=== PATIENT | female | born 1980 | race Hispanic/Latino ===

== ENCOUNTER 2017-01-25 09:55 | Inpatient (IN) | payer MEDICAID, SELFPAY ==
[2017-01-25] MEDS ORDERED: Labetalol HCl 100 MG/20 ML VIAL ONE (12:27)
[2017-01-25] MEDS ORDERED: FLU VACC QS2017-18 36 mo. & older 0.5 ML SYRINGE IM ONE (12:30)
[2017-01-25] MEDS ORDERED: Dextrose 50% Abboject 50 ML SYRINGE SLOW IVP PRN (12:31)
[2017-01-25] MEDS ORDERED: Docusate 100 MG CAP PO PRN (12:31)
[2017-01-25] MEDS ORDERED: Ondansetron HCl/PF 4 MG/2 ML Vial IVP PRN (12:31)
[2017-01-25] MEDS ORDERED: Promethazine HCl 25 MG/ML VIAL IM PRN (12:31)
[2017-01-25] MEDS ORDERED: Dextrose 5% in Water 1,000 ML IV PRN (12:31)
[2017-01-25] MEDS ORDERED: HumaLOG 300 UNITS/3 ML VIAL SC PRN (12:31)
[2017-01-25] MEDS: Labetalol HCl 100 MG/20 ML VIAL SLOW IVP PRN ×2 (12:35→14:11)
[2017-01-25 12:45] LABS: Hematocrit 35.7 % (36.0-47.0); Mean Platelet Volume 7.9 fL (7.4-10.4); Red Blood Cell (RBC) Count 4.14 mill/uL (4.20-5.40); White Blood Cell (WBC) Count 10.4 thou/uL (4.8-10.8)
[2017-01-25 13:18] LABS: ALT (SGPT) 25 U/L (8-55); AST (SGOT) 27 U/L (5-34); Alkaline Phosphatase 122 U/L (40-150); Anion Gap 15 mmol/L (10-20); BUN (Urea Nitrogen) 8 mg/dL (7.0-18.7); Bilirubin, Total 0.7 mg/dL (0.2-1.2); Calc. Creatinine Clearance 95 mL/min (70-130); Calcium 8.8 mg/dL (7.8-10.44); Carbon Dioxide 22 mmol/L (22-29); Chloride 110 mmol/L (98-107); Estimated GFR-MDRD 69; Globulin 3.4 g/dL (2.4-3.5); Protein, Total 6.5 g/dL (6.0-8.3)
[2017-01-25 13:38] VITALS: BMI 31.7
[2017-01-25] MEDS ORDERED: Labetalol HCl 100 MG TAB PO SCH ×3 (14:45→21:00)
[2017-01-25] MEDS: Betamet Acet/Betamet Na Ph 30 MG/5 ML VIAL IM SCH (15:00)
[2017-01-25] MEDS ORDERED: Lactated Ringer's 1,000 ML IV SCH (15:00)
--- NOTE | 2017-01-25 16:21 | ULT ---
EXAM: NONSTRESS BIOPHYSICAL PROFILE 01/25/17 HISTORY: Uncontrolled gestational diabetes. Severe hypertension. Possible pre-eclampsia. COMPARISON: None. TECHNIQUE: Nonstress biophysical profile is performed. FINDINGS: There is an anterior placenta. There is a single intrauterine gestation with presentation wyatt sverse maternal right. There are heart tones with a rate of 133 beats per minute. Amniotic fluid index is 10.4. Limited evaluation of the cervix. No lower uterine segment. There is a solid echotexture mass measur ing 13.3 x 11.6 x 16.3 cm. NONSTRESS BIOPHYSICAL PROFILE: bone - 2 breathing - 2 movement - 2 Amniotic fluid - 2 Total score 8 out of 8. IMPRESSION: 1. Nonstress biophysical profile score of 8 out of 8. 2. Single intrauterine gestation with heart tones. 3. Solid echotexture mass in the lower uterine segment, incompletely evaluated. POS: [facility]
[2017-01-25] MEDS ORDERED: Potassium Chloride 20 MEQ TAB PO SCH (17:30)
--- NOTE | 2017-01-25 18:01 | ULT ---
ULTRASOUND BILATERAL LOWER EXTREMITIES: Date: 01/25/17 HISTORY: Evaluate for thrombosis. Pain. Bilateral leg edema. COMPARISON: None. FINDINGS: The subcutaneous fat is abnormally increased in echotexture. There is mild lower extremity edema. Normal flow, augmentation, and compression in bilateral lower extremity venous system. The bilateral common femoral, femoral, proximal portion of greater saphenous, and deep femoral veins, as well as the popliteal and posterior tibial veins were interrogated. IMPRESSION: No deep venous thrombosis. POS: [facility]
--- NOTE | 2017-01-25 19:16 | HP ---
DATE OF ADMISSION: 01/25/2017 ATTENDING DOCTOR: Crystal Hassan D.O. RESIDENT DOCTOR: Dr. Garcia. HISTORY OF PRESENT ILLNESS: Dr. Garcia's H\T\P reviewed and the case discussed. Pertinent p ortions of the history and physical were repeated by myself. I agree with the assessment and plan w ith the following addendum. Ms. Dillard is a 36-year-old female G1, P0 with a past medical history of chronic hypertensi on. In this , she has also been noted to have uncontrolled gestational diabetes as well as enlarged cervical fibroid. 1. Chronic hypertension. Her blood pressures at the clinic today were 180s. Patient is supposed t o be taking 200 mg of labetalol b.i.d. Per her report, she is only taking 100 mg daily. She was se nt from the clinic to the hospital for further management as well as preeclampsia evaluation. Her b lood pressures here are improved on labetalol to a most recent systolic in the 170s. We will go ahe ad and give her p.o. dose of labetalol as well. We will also do a preclampsia workup with CBC, CMP and 24-hour urine. Her lab work appears to be normal other than a mild anemia with hemoglobin of 11 .6 and potassium 3.1. LFTs are normal. Creatinine is 0.92. We do not have another baseline for he r. Hemoglobin A1c 5.0 and a 24-hour urine is pending. BPP NST is 01/25. 2. Gestational diabetes: Her home blood pressure log notes blood sugars in the 190s. Her blood chaudhary gars here is 73 prior to lunch. We will continue to monitor fasting and 2-hour postprandial blood s ugars to determine if the patient requires insulin versus oral medications. The patient may require insulin treatment, but we will continue to monitor blood sugars for now. 3. Cervical fibroid. Patient will require primary as the large fibroid is blocking the p elvic output. We will schedule for 37 to 38 weeks per OB recommendations. Given her high risk for delivery before 37 weeks due to multiple high risk comorbidities as well as some issues with complia nce, we will go ahead and give her 2 doses of steroids. We will also check a GBS swab today.
[2017-01-25] MEDS ORDERED: Insulin Detemir 100 UNITS/ML 5 UNITS in Pre-Filled Syringe SC SCH (21:00)
[2017-01-26] MEDS: Acetaminophen 325 MG TAB PO PRN ×2 (00:07→13:07)
--- NOTE | 2017-01-26 07:41 | PDOC.FM ---
- Subjective Subjective: 36 yo F with uncrontrolled chronic hypertension hospital day 2. No acute events overnight. BP has trended down on average but pressure remains high. She denies NVDC, CP, SOB, changes of vision, weakness, dizziness, scotoma, abdominal pain. She reports one headache that subsequently resolved. She states she has been taking her medication as prescribed at home. - Objective Vital Signs & Weight: Vital Signs (12 hours) Temp Pulse Resp BP Pulse Ox 01/25/17 20:52 88 132/78 01/25/17 20:00 98.0 F 88 18 99 Weight Weight 71.214 kg Result Diagrams: 01/25/17 12:05 01/25/17 12:05 <Woody Vazquez - Last Filed: 01/26/17 07:38> - Objective Vital Signs & Weight: Vital Signs (12 hours) Temp Pulse Resp BP 01/26/17 09:11 69 159/83 H 01/26/17 08:00 98.4 F 73 18 Weight Weight 71.214 kg Result Diagrams: 01/25/17 12:05 01/25/17 12:05 <Crystal Hassan - Last Filed: 01/26/17 14:20> Phys Exam - Physical Examination Constitutional: NAD HEENT: sclera anicteric Respiratory: no wheezing, no rales, no rhonchi, clear to auscultation bilateral Cardiovascular: RRR, no significant murmur, no rub Gastrointestinal: soft, non-tender Gravid Musculoskeletal: pulses present no-pitting edema b/l LE, improved from yesterday Neurological: non-focal, moves all 4 limbs Psychiatric: normal affect <Woody Vazquez - Last Filed: 01/26/17 07:38> Dx/Plan (1) Chronic hypertension affecting Code(s): O10.919 - UNSP PRE-EXISTING HTN COMP , UNSP TRIMESTER Status : Acute Plan: -continue labetalol 200BID, consider increase to 300 BID if morning pressures increase -maintain pressures <160 systolic -hydralizine PRN for sys >180 -r/o pre-e spot urine protein/creatinine, 24 hr urine protein pending -AST, ALT, Platelets WNL BPP 11/23 (2) Gestational diabetes Code(s): O24.419 - GESTATIONAL DIABETES MELLITUS IN , UNSP CONTROL Status: Acute Plan: -HgbA1c is 5. -currently sugars in normal range -hold GDM meds for now -recommend close op f/u given h/o elevated 1hr GTT results -dietary consult pending for pt education BPP 11/23 (3) Pre-eclampsia added to pre-existing hypertension Code(s): O11.9 - PRE-EXISTING HYPERTENSION WITH PRE-ECLAMPSIA, UNSP TRIMESTER Status: Acute Plan: concern for 24 hr urine protein pending Urine protein <10 and urine creatinine <20 BPP 11/23 (4) Edema Code(s): R60.9 - EDEMA, UNSPECIFIED Status: Acute Plan: venogram negative for DVT bl <Woody Vazquez - Last Filed: 01/26/17 07:38> Attending Addendum - Attending Addendum I personally evaluated the patient and discussed the management with Dr. Vazquez on 01/26/17. I agree with the History, Examination, Assessment and Plan documented above with any addition or exceptions noted below. BPs improved today on higher dose of labetalol. Continue labetalol 300 mg BID for now. Blood sugars normal, but not checked 2h post prandial, will change today and monitor. Will likely be able to control on PO meds and diet based on today's numbers. Continue to monitor overnight. Will get second dose of steroids tonight and likely discharge tomorrow if BP and glucose remain controlled. C/S scheduled for 37-38 weeks per OB recommendation. <Crystal Hassan - Last Filed: 01/26/17 14:20>
[2017-01-26] MEDS: Labetalol HCl 100 MG TAB PO SCH ×2 (09:11→21:18)
[2017-01-26] MEDS: Enoxaparin Sodium 40 MG/0.4 ML SYRINGE SC SCH (09:11)
[2017-01-26 12:17] LABS: Collection Duration 24 hrs
[2017-01-26 13:02] LABS: Protein, Urine Less than 10 mg/dL (1-14)
[2017-01-26] MEDS: Betamet Acet/Betamet Na Ph 30 MG/5 ML VIAL IM SCH (15:15)
[2017-01-27] MEDS: Acetaminophen 325 MG TAB PO PRN ×2 (04:57→13:16)
--- NOTE | 2017-01-27 08:08 | PDOC.FM ---
- Subjective Subjective: 36 yo F with @ 31.4 weeks with chronic htn and GDM, currently hospital day 3. No acute events overnight. She reports 2 headaches since yesterday which have responded to tylenol. Denies changes of vision, lightheadedness, dizziness, CP, SOB. Denies change in swelling from her baseline. Mom reports good movement. - Objective Vital Signs & Weight: Vital Signs (12 hours) Temp Pulse Resp BP BP Pulse Ox 01/27/17 04:30 98.1 F 69 20 157/76 H 01/26/17 23:00 97.9 F 75 18 139/78 97 01/26/17 21:18 78 144/76 H Weight Weight 71.214 kg I&O: 01/26/17 01/27/17 01/28/17 06:59 06:59 06:59 Intake Total 800 Balance 800 Result Diagrams: 01/25/17 12:05 01/25/17 12:05 <Woody Vazquez - Last Filed: 01/27/17 08:04> - Objective Vital Signs & Weight: Vital Signs (12 hours) Temp Pulse Resp BP BP 01/27/17 12:55 97.5 F L 64 18 129/69 01/27/17 09:30 60 155/76 H 01/27/17 08:40 98.0 F 60 18 01/27/17 08:39 98.0 F 60 18 155/76 H Weight Weight 71.214 kg I&O: 01/26/17 01/27/17 01/28/17 06:59 06:59 06:59 Intake Total 800 Balance 800 Result Diagrams: 01/25/17 12:05 01/25/17 12:05 <Crystal Hassan - Last Filed: 01/27/17 17:10> Phys Exam - Physical Examination Constitutional: NAD HEENT: sclera anicteric Respiratory: no wheezing, no rales, no rhonchi, clear to auscultation bilateral Cardiovascular: RRR, no significant murmur, no rub Gastrointestinal: non-tender Gravid Musculoskeletal: pulses present non-pitting edema bl LE Neurological: non-focal, moves all 4 limbs <Woody Vazquez - Last Filed: 01/27/17 08:04> Dx/Plan (1) Chronic hypertension affecting Code(s): O10.919 - UNSP PRE-EXISTING HTN COMP , UNSP TRIMESTER Status : Acute Plan: -continue labetalol 300 BID -maintain pressures <160 systolic -hydralizine PRN for sys >180, given once yesterday for sys of >180 -24 hr urine protein negative for evidence of pre-e -AST, ALT, Platelets WNL -BPP 8/8 -repeat NST today, if reassuring DC home with close OP f/u -GBS pending (2) Gestational diabetes Code(s): O24.419 - GESTATIONAL DIABETES MELLITUS IN , UNSP CONTROL Status: Acute Plan: -HgbA1c is 5. -BS elevated to 184 yesterday and pt given 2 units SSI. This is likely 2/2 celestone administration, but recommend close op f/u and home monitoring of BS. -attempt diet control for GDM on d/c. close OP f/u for blood sugar. -dietary consult pending for pt education -BPP 8 -NST today, dc home if reassuring (3) Pre-eclampsia added to pre-existing hypertension Code(s): O11.9 - PRE-EXISTING HYPERTENSION WITH PRE-ECLAMPSIA, UNSP TRIMESTER Status: Ruled-out Plan: 24 hour urine protein negative for pre-eclampsia BPP 8 (4) Edema Code(s): R60.9 - EDEMA, UNSPECIFIED Status: Acute Plan: venogram negative for DVT bl continue lovenox and scds for DVT prophylaxis pedal edema remains,unchanged from yesterday <Woody Vazquez - Last Filed: 01/27/17 08:04> Attending Addendum - Attending Addendum I personally evaluated the patient and discussed the management with Dr. Vazquez on 01/27/17. I agree with the History, Examination, Assessment and Plan documented above with any addition or exceptions noted below. BP improved on labetalol 300 mg. Monitor through this morning. Single elevated glucose, will start Metformin with concerns uncontrolled GDM. Follow up in clinic on Tuesday with blood sugar logs to continue to titrate meds. <Crystal Hassan - Last Filed: 01/27/17 17:10>
[2017-01-27] MEDS ORDERED: Prenatal Vitamin 1 TAB PO SCH (09:00)
[2017-01-27] MEDS: Labetalol HCl 100 MG TAB PO SCH (09:30)
[2017-01-27] MEDS: Enoxaparin Sodium 40 MG/0.4 ML SYRINGE SC SCH (09:31)
[2017-01-27 12:56] VITALS: BP 129/69; TEMP 97.5
--- NOTE | 2017-01-28 13:40 | DIS-2 ---
DATE OF SERVICE: 01/29/2017 LOCATION: [facility] in [place], [place]. COSIGNER: Crystal Hassan D.O. DATE OF ADMISSION: 01/25/2017 DATE OF DISCHARGE: 01/27/2017 RESIDENT PHYSICIAN: Woody Vazquez DO ADMITTING ATTENDING: Crystal Hassan D.O. DISCHARGE ATTENDING: Crystal Hassan D.O. CONSULTS: None. PROCEDURES: 1. Biophysical profile ultrasound showed nonstress biophysical profile score 8/8. 2. Also showed a single intrauterine gestation with heart tones. 3. Showed echotexture mass in the lower uterine segment, incompletely evaluated. 4. Venogram done on 01/25/2017, showed no deep vein thrombosis. PRIMARY DIAGNOSES: 1. Chronic hypertension, complicated by . 2. Gestational diabetes. DISCHARGE MEDICATIONS: 1. Labetalol 300 mg p.o. b.i.d. 2. vitamin 1 tab daily. DISCONTINUED MEDICATIONS: Labetalol 100 mg daily. HISTORY OF PRESENT ILLNESS AND HOSPITAL COURSE: The patient is a 36-year-old G1 , P0 at 31 weeks and 2 days by last menstrual period, sent from the Clinic for uncontrolled hypertension and gestational diabetes, and her systolic blood pressure within 100-180s prior to admission and a 1-hour glucose tolerance test showed a glucose of over 200. On admission, the patient was switched to a diabetic cardiac diet and her pressures were monitored. DBP and SBP were performed, both of which were normal and the patient's labetalol was increased from 100 b.i.d. to 300 b.i.d. upon discharge. Her blood pressure on admission was 191/106, which subsequently trended down with the increase in labetalol dose to 129/69 upon discharge. All other vitals were within normal limits. CBC done showed a white blood cell count 10.4, hemoglobin 11.6, hematocrit 35.7, platelets of 240. Her glucose on admission was 73 and remained fairly well controlled throughout her stay without the use of medications. Her 2-hour postprandial glucose measurements were 113, 184, and 122 respectively. After the 184 glucose readings, patient was given 2 units of mild sliding scale insulin, which subsequently dropped her blood glucose to 110 ; however, it should be noted that the patient was also given Celestone x2 doses prior to the elevated blood sugars. LFT's w/in normal limits. Normal Platelets. DISPOSITION: The patient left the hospital in stable condition. DISCHARGE INSTRUCTIONS: 1. Location: Discharge home. 2. Discharge diet: Diabetic diet and heart healthy. 3. Activity: As tolerated. 4. Followup: Follow up clinic or primary obstetrics provider within 1 week following discharge. ANGÉLICA
== END 2017-01-27 15:15 | disposition home or self-care (01) | DRG 781 ==
LOC: L&D/OP 09:55 → L&D 11:09 → 3SW 01-26 23:29
PROVIDERS: ADMIT Family Medicine; ATTEND Family Medicine
DX: O10.013 Pre-existing essential hypertension complicating pregnancy, third trimester (principal); O99.89 Other specified diseases and conditions complicating pregnancy, childbirth and the puerperium; D26.0 Other benign neoplasm of cervix uteri; O24.410 Gestational diabetes mellitus in pregnancy, diet controlled; Z3A.31 31 weeks gestation of pregnancy; O09.513 Supervision of elderly primigravida, third trimester; O99.013 Anemia complicating pregnancy, third trimester; D64.9 Anemia, unspecified
CPT/HCPCS: 36416; 59025; 76819; 80053; 82570; 83036; 84156; 85027; 87081; 93970; J0360; J0702; J1650; J1815; J2405

== ENCOUNTER 2017-01-31 10:42 | Inpatient (IN) | payer MEDICAID, SELFPAY ==
[2017-01-31] MEDS ORDERED: Promethazine HCl 25 MG/ML VIAL IM PRN ×2 (11:05→18:07)
[2017-01-31] MEDS ORDERED: Calcium Gluc 4.6 MEQ/10 ML (100 MG/ML) SLOW IVP PRN ×2 (11:05→13:28)
[2017-01-31] MEDS ORDERED: Ondansetron HCl/PF 4 MG/2 ML Vial IVP PRN ×3 (11:05→18:07)
[2017-01-31] MEDS ORDERED: Labetalol HCl 100 MG TAB PO SCH ×2 (11:30→21:00)
[2017-01-31 12:32] LABS: Mean Platelet Volume 8.4 fL (7.4-10.4); Red Blood Cell (RBC) Count 4.26 mill/uL (4.20-5.40); White Blood Cell (WBC) Count 12.8 thou/uL (4.8-10.8)
[2017-01-31 12:52] LABS: ALT (SGPT) 197 U/L (8-55); AST (SGOT) 97 U/L (5-34); Alkaline Phosphatase 150 U/L (40-150); Anion Gap 14 mmol/L (10-20); BUN (Urea Nitrogen) 10 mg/dL (7.0-18.7); Bilirubin, Total 0.9 mg/dL (0.2-1.2); Calc. Creatinine Clearance 0 mL/min (70-130); Calcium 9.4 mg/dL (7.8-10.44); Carbon Dioxide 23 mmol/L (22-29); Chloride 109 mmol/L (98-107); Estimated GFR-MDRD 77; Protein, Total 7.3 g/dL (6.0-8.3)
[2017-01-31] MEDS ORDERED: Magnesium Sulfate 20 GM/WATER 500 ML BAG IVPB SCH (13:30)
[2017-01-31 13:57] LABS: Bilirubin Negative (Negative); Blood, Urine Negative (Negative); Glucose, Urine (Dipstick) Negative (Negative); Ketone, Urine Negative (Negative); Nitrite Negative (Negative); Protein, Urine (Dipstick) Negative (Neg-Trace); Urobilinogen 0.2 mg/dL (0.2-1.0)
--- NOTE | 2017-01-31 14:04 | PDOC.LDPN ---
Labor & Delivery Progress Note - Subjective Subjective: other (ruq pain ) - Objective General: resting Uterine fundus: non tender - Assessment (1) Pre-eclampsia added to pre-existing hypertension Code(s): O11.9 - PRE-EXISTING HYPERTENSION WITH PRE-ECLAMPSIA, UNSP TRIMESTER Current Visit: No Status: Ruled-out (2) Chronic hypertension affecting Code(s): O10.919 - UNSP PRE-EXISTING HTN COMP , UNSP TRIMESTER Current Visit: No Status: Acute (3) Edema Code(s): R60.9 - EDEMA, UNSPECIFIED Current Visit: No Status: Acute Qualifiers: Edema type: gestational Trimester: third trimester Qualified Code(s): O12.03 - Gestational edema, third trimester (4) Gestational diabetes Code(s): O24.419 - GESTATIONAL DIABETES MELLITUS IN , UNSP CONTROL Current Visit: No Status: Acute Qualifiers: Gestational diabetes mellitus control: diet-controlled Trimester: third trimester Qualified Code(s): O24.410 - Gestational diabetes mellitus in , diet controlled Plan: continue plan of care -: -elevated AST-97, ALT-197 w/ RUQ tenderness-> bp continues to be elevated: pre- e with severe features -give one dose hydralizine PRN sys >160, diastolic > 110, labetalol 20mg IVP if pressures remain elevated, page if pressure remains >180 sys -start Mag @ 4gm->2gm/hr maintenance after initial load -neuro checks q1h -pt received celestone X2 last admission, and had no evidence of preeclampsia on that hospital stay she will be scheduled for urgent this PM 2/2 elevated LFTs, hyperreflexia and RUQ pain. Anesthesia, OB and Neonatology have been consulted. -GDM controlled with diet -BPP 11/23 <Woody Vazquez - Last Filed: 01/31/17 14:02> Attending Addendum - Attending Addendum I personally evaluated the patient and discussed the management with Dr. Vazquez. I agree with the History, Examination, Assessment and Plan documented above with any addition or exceptions noted below. <Rishi Paiz - Last Filed: 01/31/17 14:25>
[2017-01-31 14:13] LABS: Bacteria/HPF 1+ HPF (None Seen); Hyaline Casts/LPF 0-3 HYALINE CAST LPF (0-3 Hyaline); RBC/HPF 0-3 HPF (0-3); Squamous Epithelial 0-3 HPF (0-3); WBC/HPF 0-3 HPF (0-3)
--- NOTE | 2017-01-31 14:29 | PDOC.LDHP ---
Labor and Delivery H&P Chief complaint: other (elevated blood pressure) HPI: Patient well known to our service. 36 y/o G1 with 15cm cervical fibroid with new dx HTN/GDM and recent admission where she was r/o for preeclampsia and had a course of steroids. At that time also had dopplers LE which r/o DVT She presented to [facility] today where her BP was in the 180s and was subsequently sent to the hospital. She tells me that she has some RUQ pain earlier this AM which resolved, but has now recurred. She denies headache or vision changes. +FM, no ctx. She states she has been taking labetalol 200 mg BID. Her leg edema is unchanged. Current gestational age (weeks): 32 Dating criteria: other Grav: 1 Para: 0 Current complications: gestational diabetes, gestational hypertension Abnormal US findings: Yes Past Medical History: Denies Current medications: pre-daniela vitamins, other (labetalol 200 mg PO BID) Previous surgical history: none Allergies/Adverse Reactions: Allergies Allergy/AdvReac Type Severity Reaction Status Date / Time No Known Allergies Allergy Verified 01/25/17 11:21 Social history: none - Physical Exam Abnormal vital signs: systolic 200's on admission General: NAD, resting Heart: RRR Lungs: nonlabored breathing Abdomen: gravid Extremeties: pitting edema (L>R, similar to my findings in clinic previously) FHT: category 1 Trout contractions every: None - Assessment Preeclampsia with severe features Lower extremity edema GDM AMA Rubella non-immune - Plan -: Discussed in detail with Dr. Monaco. Improved BP after hydralazine 10 mg and PO labetalol 300 mg restarted. Upon reevaluation back in the 180s and will repeat a dose of hydralazine. LFTs elevated and prot/cr & coags pending at time of this H&P. Will begin magnesium, neurochecks, strict I&O with FC and plan for primary . I have counseled her concerning her fibroid, and quite a bit of counseling has also been done in clinic concerning the potential moribidity and need possible need for vertical incision. Dr. Hassan, the patient's continuity physician, notified. NICU notified as well. Plan to OR ~6 pm. Monitor sugars, 6w pp 2h gtt MMR Has previously declined NIPT. If no improvement in LLE edema pp will repeat dopplers. Concern for May- Thurner initially but dopplers negative. Tanesha Paiz MD
[2017-01-31] MEDS: Magnesium Sulfate 20 gm/500 ml 20 GM/500 ML BAG IVPB SCH ×2 (14:36→21:42)
[2017-01-31 15:26] VITALS: BMI 31.5
[2017-01-31 15:44] LABS: PTT 29.9 SEC (22.9-36.1); Prothrombin Time 13.1 SEC (12.0-14.7)
--- NOTE | 2017-01-31 16:08 | ULT ---
Please see accession #[id number]. POS: [facility]
[2017-01-31] MEDS ORDERED: Bicitra 30 ML UDCUP PO SCH (17:00)
[2017-01-31] MEDS ORDERED: Ondansetron HCl/PF 4 MG/2 ML Vial ONE (17:41)
[2017-01-31] MEDS ORDERED: Dexamethasone 4 mg/ml Vial ONE (17:41)
[2017-01-31] MEDS ORDERED: Oxytocin 10 UNITS/ML VIAL ONE (17:41)
[2017-01-31] MEDS ORDERED: PHENYLEPHRINE-NS 100 MCG/ML 10 ML SYRINGE ONE ×2 (17:51→18:59)
[2017-01-31] MEDS ORDERED: HYDROmorphone 2 MG/ML VIAL SLOW IVP PRN (18:07)
[2017-01-31] MEDS ORDERED: Naloxone HCl 0.4 mg/ml Vial IVP PRN ×2 (18:07)
[2017-01-31] MEDS ORDERED: diphenhydrAMINE HCl 50 MG/ML 1 ML VIAL IVP PRN (18:07)
[2017-01-31] MEDS ORDERED: Eucerin (Mineral Oil/Petrolatum,White) 30 gm Jar TOP PRN (18:07)
[2017-01-31] MEDS ORDERED: Naloxone HCl 0.4 mg/ml Vial IV PRN (18:07)
[2017-01-31] MEDS ORDERED: Meperidine HCl/PF 25 MG/ML VIAL SLOW IVP PRN (18:07)
[2017-01-31] MEDS ORDERED: Promethazine HCl 25 MG SUPP PR PRN (18:07)
[2017-01-31] MEDS ORDERED: Communication Order-Pharmacy FS SCH (18:15)
[2017-01-31] MEDS ORDERED: Ketorolac Tromethamine 30 MG/ML VIAL IVP SCH (18:15)
[2017-01-31] MEDS ORDERED: diphenhydrAMINE HCl 25 MG CAP PO PRN (20:10)
[2017-01-31] MEDS ORDERED: LR w/ Pitocin 40 units/1000 ML BAG IV SCH (20:10)
[2017-01-31] MEDS ORDERED: Simethicone Chewable 80 MG TAB PO PRN (20:10)
[2017-01-31] MEDS ORDERED: Lanolin Ointment 7 GM TUBE TOP PRN (20:10)
[2017-01-31] MEDS ORDERED: Acetaminophen 325 MG TAB PO PRN (20:10)
[2017-01-31] MEDS ORDERED: Bisacodyl 10 MG SUPP PR PRN (20:10)
--- NOTE | 2017-01-31 20:29 | PDOC.OPDEL ---
OB Operative/Delivery Note Delivery Dr/Surgeon: Rosalva Monaco MD Assist: Kiley Piper MD, Khadijah Shaw DO Pre-Delivery Diagnosis: other (Large lower segment utrine fibroid preventing vaginal delivery) Procedure/Post Delivery Dx: classical CS (Vertical/midline skin incision) Weeks gestation: 32 (32.1 wks by LMP/30.2 wks) Anesthesia: spinal - Findings A Sex: male Weight: 1.61 kg - 5 min: 8 - 10 min: 9 - Additional Findings/Plan Placenta delivered: manual removal findings: normal ovaries, other (Classical incision. Closed in 2 layers. Flowseal placed. Hemostatic. ) Estimated blood loss: 800 mL Compilations/Other Findings: NONE 36 yo female at 32.1 wks by LMP/30.2 wk sono was admitted for superimposed preeclampsia with severe features (elevated BP and LFTs). Magnesium started. BP treated x1. Asymptomatic. Patient was s/p steroids for FLM on 01/25 and 01/26 therefore decision was man to proceed with delivery and not expectant management. Not a candidate for vaginal delivery 2/2 to large lower segment fibroid and malpresentation. Patient was taken to OR at 1800 for primary classical . Patient was prepped and draped for midline incision. Time out performed. Dr. Lonny Monaco was consulted for primary surgeon due to risk of case. Skin was incised at midline and taken down to fascia with sharp and blunt dissection. Fascia incised with jauregui scissors and blunt dissection. Rectus muscles dissected bluntly. Peritoneum was incised with mets and blunt dissection. Dane o retractor placed. Uterus and adnexa evaluated. Large posterior fibroid noted with possible anterior involvement. Fetus felt to be transverse, back up. Vertical uterine incision made. lower extremities noted and fetus delivered footling breech. cry noted with delivery. Cord clamped and cut. moved to warmer with NICU team. Placenta extracted manually. Intact. 3VC. Minimal blood loss. Incision repaired in 2 layers. Mild oozing at site. Flowseal placed for extra hemostasis. Fascia, subcutaneous, and skin closed without complications. Skin closed with sukhdeep. Postop DX: 1. sIUP at 32.1 wks 2. AMA 3. cHTN with superimposed preeclampsia with severe features 4. A1, GDM 5. malpresentation 6. Incomplete care 7. Rubella nonimmune 8. Large lower segment uterine fibroid Routine recovery. Transferred to L&D ICU for continuous mag drip. Tucker Post delivery plan: recovery in LICU
[2017-01-31] MEDS ORDERED: Adacel (T-DAP) 0.5 ML VIAL IM ONE (20:30)
[2017-01-31] MEDS ORDERED: Measles/Mumps/Rubella 10 MCG/0.5 ML VIAL SC ONE (20:30)
[2017-01-31] MEDS ORDERED: FLU VACC QS2017-18 36 mo. & older 0.5 ML SYRINGE IM ONE (21:00)
[2017-01-31] MEDS ORDERED: HYDROcodone/Acetaminophen 5/325 mg Tablet PO PRN ×2 (21:39)
[2017-01-31] MEDS: Docusate (Surfak) 240 MG CAP PO SCH (22:06)
[2017-01-31] MEDS: Ferrous Sulfate 325 MG TAB PO SCH (22:06)
[2017-02-01] MEDS ORDERED: Acetaminophen 1,000 MG in Premix Bag 1 BAG IVPB PRN (00:36)
--- NOTE | 2017-02-01 02:31 | PDOC.EVN ---
Addendum entered and electronically signed by Hemalatha Jean DO 02/01/17 02:31: This check was done at 0010, signed at 0231. Original Note: Event Note - Event Note Event Note: Magnesium Check Patient is ill appearing, vomited x2 while in the room, became nauseated after being given [place] for pain. UOP is about 140ml/hr. Denies CP and SOB. Exam: General: ill appearing, flushed, diaphoretic Heart: RRR, no murmurs Lungs: CTAB, no increased work of breathing DTR's: 2/4 on LLE and RUE, 3/4 on RLE and LUE Plan: Will give IV tylenol for pain, nausea likely related to [place], will give IV zofran for nausea. Keep mag at 2. Recheck in 4 hours. <Hemalatha Jean - Last Filed: 02/01/17 02:25> Attending Addendum - Attending Addendum I personally evaluated the patient and discussed the management with Dr. Jean I agree with the History, Examination, Assessment and Plan documented above with any addition or exceptions noted below. 36 yo female s/p classical c/s 2/2 malpresentation and large lower uterine fibroid at 32.1 wks due to superimposed preeclampsia with severe features. PPD/POD #1. Will continue mag sulfate for at least 24 hour after delivery. Currently no s/ sx of mag tox. Continues to have occasional severe range pressures that are responsive to hydralizine. Will increase to Labetolol 400 BID or possibly 300 mg TID. Patient would like respond better to CCB but due to theoretical risk will wait till after mag ppx. Remains asymptomatic. Repeat labs in AM to verify trend towards improvement. Will need 6 wk pp 2 hour OGTT. Fasting glucose in AM. Will need follow up appointment with [facility] [employer] [facility]SEL[facility] for fibroid. Continue to discuss contraception. Tucker <Mili Piper - Last Filed: 02/01/17 09:29>
--- NOTE | 2017-02-01 03:08 | OP ---
DATE OF PROCEDURE: 01/31/2017 PREOPERATIVE DIAGNOSES: Severe preeclampsia at 32 weeks with large 15 cm lower uterine segment fibr oid obstructing vaginal delivery. POSTOPERATIVE DIAGNOSES: Severe preeclampsia at 32 weeks with large 15 cm lower uterine segment fib roid obstructing vaginal delivery. PROCEDURE: Classical section. SURGEON: Roland Monaco M.D. HEALTH INFORMATION TECH: Savannah Shaw DO, PGY-3; Mili Piper M.D. ANESTHESIA: Subarachnoid block, Ashok Gay M.D. ESTIMATED BLOOD LOSS: 800 mL. MEDICATIONS: Two grams of Ancef preincision. DVT PROPHYLAXIS: SCDs. SPECIMENS REMOVED: Placenta for pathology. OPERATIVE FINDINGS: 1. Male infant, footling breech presentation, 3 pounds 9 ounces, 8 and 9 Apgars, to NICU with clear fluid. 2. Large 15 cm lower uterine segment fibroid. 3. Hemostasis with clear urine, counts correct at the end of the procedure. DISPOSITION: Recovery room in good condition. DESCRIPTION OF OPERATIVE PROCEDURE: After obtaining proper informed consent, the patient was taken to the operating room where subarachnoid block was achieved without difficulty. The patient was pre pped and draped in the usual manner. The ultrasound had been revealed the location of the placenta, fetus, and fibroid was appreciated. A vertical midline skin incision was made beginning with its i nferior margin approximately snf between the symphysis pubis and the umbilicus and extending jane und the umbilicus and above it for about 3 cm. It was carried down to the fascia and the midline in cised superiorly and inferiorly with curved Caraballo scissors. Rectus was divided sharply and peritoneu m entered bluntly, taking care to avoid trauma to the underlying viscera. The Dane 0 retractor wa s placed inside. Fibroid was visualized and appreciated. It caused a little bit of rotation to the right of the uterus and was noted to be more located posteriorly than anteriorly. Because of the l ocation of the fibroid and the placenta, decision was made to perform a vertical uterine incision. This was high enough up on the lower uterine segment that it would be described as a classical rathe r than a low vertical uterine incision. Uterine cavity was reached and clear fluid was noted. Inci gabino was extended superiorly using curved Caraballo scissors. The 's feet were grasped in the hyst erotomy, and the infant was delivered in the usual manner, maintaining flexion of the head, and was handed off to neonatology team in attendance. Usual cord blood sample obtained. The placenta was r emoved manually, and the uterus exteriorized and wrapped with a moist laparotomy sponge. Hysterotom y was closed in 2 layers using a running locking #1 Monocryl in the first layer and an imbricating b aseball stitch on the second layer. Good hemostasis for vertical uterine incision was appreciated. Suction irrigation was carried out of the gutters bilaterally and reinspection of the hysterotomy r evealed it to be relatively dry. FloSeal was applied secondary to the proximity of vertical uterine incisions to bleed in the postoperative period. The Dane 0 retractor was removed. Counts were c orrect x1. The fascia was reapproximated using #0 PDS suture in a running continuous manner. Subcu taneous tissue was irrigated and rendered hemostatic with Bovie cautery, and reapproximated using a #3-0 plain gut. Skin reapproximated with sukhdeep. The patient was taken to the recovery room in go od condition. Family Medicine Residency will continue to manage the patient's severe preeclampsia i n the postoperative period and we will follow along at a distance for consultation with any postoper ative issues.
[2017-02-01] MEDS ORDERED: Labetalol HCl 100 MG TAB PO SCH (03:19)
[2017-02-01 05:27] LABS: Hematocrit 38.2 % (36.0-47.0); Mean Platelet Volume 7.9 fL (7.4-10.4); Red Blood Cell (RBC) Count 4.37 mill/uL (4.20-5.40); White Blood Cell (WBC) Count 18.6 thou/uL (4.8-10.8)
--- NOTE | 2017-02-01 05:29 | PDOC.EVN ---
Event Note - Event Note Event Note: Magnesium Check: Patient is resting comfortably. Reports no N/V since last check. Denies SOB and CP. UOP is 180ml/hr. BP: 147/83 General: NAD Heart: RRR Lungs: CTAB, no increased work of breathing DTR's: 3/4 in UE and LE Plan: Continue Mg at 2, will check a Mg level along with CMP this morning. Patient had elevated pressures in the 170's-180's systolic about 1 hr ago, 10mg Hydralazine was given and patient responded well. Increase morning dose of Labetalol to 400mg. Will continue q4h checks. <Hemalatha Jean - Last Filed: 02/01/17 05:22> Attending Addendum - Attending Addendum I personally evaluated the patient and discussed the management with Dr. Jean I agree with the History, Examination, Assessment and Plan documented above with any addition or exceptions noted below. 36 yo female s/p classical c/s 2/2 malpresentation and large lower uterine fibroid at 32.1 wks due to superimposed preeclampsia with severe features (s/p FLM steriods 01/25 and 01/26). PPD/POD #1. Will continue mag sulfate for at least 24 hour after delivery. Currently no s/ sx of mag tox. Has not yet demonstrated large diuresis. Brisk reflexes. Will check mag level with AM labs to make sure level therapeutic. Continues to have occasional severe range pressures that are responsive to hydralizine. Will increase to Labetolol 400 BID or possibly 300 mg TID. Patient would likely respond better to CCB but due to theoretical risk will wait till after mag ppx. Remains asymptomatic. Repeat labs in AM to verify trend towards improvement. Will need 6 wk pp 2 hour OGTT. Fasting glucose in AM. Will need follow up appointment with CASHIER CLERK for fibroid. Continue to discuss contraception. Tuckre <Mili Piper - Last Filed: 02/01/17 09:32>
[2017-02-01 05:53] LABS: ALT (SGPT) 148 U/L (8-55); AST (SGOT) 73 U/L (5-34); Alkaline Phosphatase 140 U/L (40-150); Anion Gap 12 mmol/L (10-20); BUN (Urea Nitrogen) 11 mg/dL (7.0-18.7); Bilirubin, Total 0.8 mg/dL (0.2-1.2); Calc. Creatinine Clearance 106 mL/min (70-130); Calcium 9.2 mg/dL (7.8-10.44); Carbon Dioxide 25 mmol/L (22-29); Chloride 106 mmol/L (98-107); Estimated GFR-MDRD 79; Globulin 3.7 g/dL (2.4-3.5); Protein, Total 6.9 g/dL (6.0-8.3)
[2017-02-01 05:58] LABS: Magnesium 9.4 mg/dL (1.6-2.6)
[2017-02-01] MEDS ORDERED: Ibuprofen 800 MG TAB PO SCH (06:00)
[2017-02-01] MEDS ORDERED: HYDROcodone/Acetaminophen 5/325 mg Tablet PO PRN ×2 (06:15)
--- NOTE | 2017-02-01 07:19 | ULT ---
ULTRASOUND OBSTETRICAL COMPLETE ULTRASOUND BIOPHYSICAL PROFILE: HISTORY: 36-year-old female in third trimester of with preeclampsia. FINDINGS: number: Khan. lie: Transverse and variable, with head to maternal left. Maternal cervix: Completely obscured. Placenta: Anterior. No placenta previa. Amniotic fluid volume: within normal limits for third trimester. SCOT 12.5 cm. heart rate: 147 bpm. The following anatomy is visualized, with no evidence of anomalies: Head, cerebellum, cisterna magna, fourth ventricle, stomach, kidneys, three vessel cord, upper extre mities, lower extremities, and bladder. The rest of the anatomy is poorly visualized because this is the third trimester. biometry: Head circumference (HC): 29.2 cm 32w 1d Biparietal diameter (BPD): 7.7 cm 31w 0d Abdominal circumference (AC): 26.6 cm 30w 5d Femur length (FL): 6.1 cm 31w 5d Average ultrasound age (AUA): 31w 6d Estimated date of delivery (SYBIL): 03/29/17. Last menstrual period (LMP): 06/19/16. Gestational age by LMP: 32w 2 d Estimated weight (EFW): 1719 g +/- 254 g (3 lb 13 oz +/- 9 oz) breathin tone: 2 movement: 2 Amniotic fluid volume: 2 IMPRESSION: 1. Live third trimester intrauterine gestation. 2. Estimated gestational age of 31 weeks, 6 days. 3. Transverse and variable lie. 4. Normal biophysical profile score of 8/8, excluding the non-stress test. ANGELINA Quinn POS: ALONDRA
[2017-02-01] MEDS ORDERED: Prenatal Vitamin 1 TAB PO SCH (09:00)
[2017-02-01] MEDS ORDERED: Enoxaparin Sodium 30 MG/0.3 ML SYRINGE SC SCH (09:00)
[2017-02-01] MEDS: Labetalol HCl 100 MG TAB PO SCH (09:02)
[2017-02-01] MEDS: Docusate (Surfak) 240 MG CAP PO SCH ×2 (09:04→22:21)
--- NOTE | 2017-02-01 09:06 | PDOC.PP ---
Post Progress Note Post Day #: 1 Ambulation: no Vital Signs (12 hours) Temp Pulse Resp BP BP 02/01/17 08:00 97.8 F 70 16 160/93 H 02/01/17 04:00 97.6 F 73 18 02/01/17 03:16 69 170/97 H 02/01/17 00:10 97.5 F L 02/01/17 00:00 97.5 F L 67 18 01/31/17 21:43 71 179/97 H 01/31/17 21:26 97.7 F 66 18 Weight Weight 70.76 kg - Physical Examination General: NAD Cardiovascular: no m/r/g, RRR Respiratory: clear to ausculation bilateral Abdominal: + bowel sounds Deviation from normal: tttp ruq, sterile midline dressing in place Extremities: negative homans (B) Skin: no rash Deviation from normal: 3-4+/5 reflexes, w/o clonus Psychiatric: normal affect Result Diagrams: 02/01/17 05:18 02/01/17 05:18 Additional Labs: Post Labs Blood Type O POSITIVE 01/31/17 12:00 (1) Pre-eclampsia added to pre-existing hypertension Code(s): O11.9 - PRE-EXISTING HYPERTENSION WITH PRE-ECLAMPSIA, UNSP TRIMESTER Status: Ruled-out (2) Chronic hypertension affecting Code(s): O10.919 - UNSP PRE-EXISTING HTN COMP , UNSP TRIMESTER Status : Acute (3) Edema Code(s): R60.9 - EDEMA, UNSPECIFIED Status: Acute Qualifiers: Edema type: gestational Trimester: third trimester Qualified Code(s): O12.03 - Gestational edema, third trimester (4) Gestational diabetes Code(s): O24.419 - GESTATIONAL DIABETES MELLITUS IN , UNSP CONTROL Status: Acute Qualifiers: Gestational diabetes mellitus control: diet-controlled Trimester: third trimester Qualified Code(s): O24.410 - Gestational diabetes mellitus in , diet controlled - Assessment/Plan -s/p urgent cs w/ classical incision 2/2 preeclampsia w/ severe features and large cervical fibroid -magnesium level above 9, was titrated down, will continue neuro checks q4 and adjust accordingly -elevated bp in 160s systolic, labetolol increased to 400BID, continue prn hydralizine -h/h stable, lfts remain elevated, will recheck cmp in am, consider ruq us -pt denies cp, sob, headache but has persistent ruq pain <Woody Vazquez - Last Filed: 02/01/17 09:00> Vital Signs (12 hours) Temp Pulse Resp BP BP 02/01/17 09:02 68 153/81 H 02/01/17 08:00 97.8 F 70 16 160/93 H 02/01/17 04:00 97.6 F 73 18 02/01/17 03:16 69 170/97 H 02/01/17 00:10 97.5 F L 02/01/17 00:00 97.5 F L 67 18 Weight Weight 70.76 kg Result Diagrams: 02/01/17 05:18 02/01/17 05:18 Additional Labs: Post Labs Blood Type O POSITIVE 01/31/17 12:00 <Rishi Paiz - Last Filed: 02/01/17 11:15> Attending Addendum - Attending Addendum I personally evaluated the patient and discussed the management with Dr. Vazquez. I agree with the History, Examination, Assessment and Plan documented above with any addition or exceptions noted below. Neurochecks hoursly. Mag levels, strict I/Os. Plan for 24h mag. BP 120's on my exam, continue labetalol. <Rishi Paiz - Last Filed: 02/01/17 11:15>
[2017-02-01] MEDS: Ferrous Sulfate 325 MG TAB PO SCH (09:09)
[2017-02-01] MEDS: Magnesium Sulfate 20 gm/500 ml 20 GM/500 ML BAG IVPB SCH (09:48)
--- NOTE | 2017-02-01 13:01 | PDOC.EVN ---
Event Note - Event Note Event Note: S: Patient doing well. + abdominal pain, improving. No concerns at this time. Denies any DOBBS, vision changes, SOB, Chest pain. Using insentive spirometry. O: SBP 114-140's. Temp: 97.8. HR 70's. R- 16. Gen: Afebrile, resting comfortably. AOx4. Resp: CTA bilaterally. No wheezing, rhonchi CV: RRR. No murmurs. Abd: Dressing intact over midline incision. Appropriately TTP. No rebound, no guarding. Reflexes: +3 Reflexes, brisk. Edema LE: Trace bilaterally I/O: Greater than 100cc/hr A/P: 1) This is a -> @ 32w1d delivered via Primary Classical @ 1842 on 01/31/2017 due to large cervical fibroid. 2) Superimposed Pre-Eclampsia with severe features - Continue Magnesium @ 1. Last Mag check was 8.5. Will recheck Q4hrs, and continue Q1hr reflex checks. No PE signs of mag toxicity currently. BP Controlled on Labetolol 400mg BID and Mag currently. Good urine output. 3) Elevated LFT's improved this am. 4) LE Edema - improved. 5) Rubella non-immune - now s/p MMR. 6) GBS negative. Discussed with Dr. Paiz who agrees with assessment and plan. <Lucille Garcia - Last Filed: 02/01/17 12:52> Attending Addendum - Attending Addendum I personally evaluated the patient and discussed the management with Dr. Joiner. I agree with the History, Examination, Assessment and Plan documented above with any addition or exceptions noted below. Severe symptoms resolved. Good diuresis. Plan 24h magnesium. Neurochecks hourly. LFTs in AM. <Rishi Paiz - Last Filed: 02/01/17 16:54>
[2017-02-01] MEDS ORDERED: Lactated Ringer's 1,000 ML IV SCH (16:00)
--- NOTE | 2017-02-01 16:56 | PDOC.EVN ---
Event Note - Event Note Event Note: Examined pt at bedisde, continues to have good urine op, nathan bag has 200mL clear urine, reflexes improved 2+ to 3, no clonus. LE swelling improved. Denies RUQ pain, CP and SOB. Pt resting comfortably in bed. BP decreasing, continue current plan of care. Mag check pending now. Will follow result and adjust dose accordingly. DC Mag after 24 hrs.
--- NOTE | 2017-02-01 19:49 | PDOC.PP ---
Post Progress Note Post Day #: 1 PO intake tolerated: yes Flatus: yes Ambulation: no Vital Signs (12 hours) Temp Pulse Resp BP BP BP 02/01/17 16:00 96.9 F L 55 L 18 119/74 02/01/17 12:00 97.6 F 80 18 136/73 02/01/17 09:02 68 153/81 H 02/01/17 08:00 97.8 F 70 16 160/93 H Weight Weight 70.76 kg - Physical Examination General: NAD Cardiovascular: RRR (II/ systolic flow murmur) Respiratory: clear to ausculation bilateral Abdominal: + bowel sounds, lochia (Appropriate), no distention, appropriately TTP (Bandage in place) Fundus firm & at: Umbilicus Extremities: negative homans (B) (SCDs in place. Edema improved.) Skin: no rash Neurological: no gross focal deficits (Reflexes 2/4) Psychiatric: A&Ox3 Result Diagrams: 02/01/17 05:18 02/01/17 05:18 Additional Labs: Post Labs Blood Type O POSITIVE 01/31/17 12:00 (1) Status post delivery Code(s): Z98.891 - HISTORY OF UTERINE SCAR FROM PREVIOUS SURGERY Status: Acute Comment: POD#1. Classical with vertical midline incision. Doing well. Transfer to pp. Pain controlled. Lochia appropriate. Bandage off in AM. H/H stable. (2) Pre-eclampsia superimposed on chronic hypertension, delivered Code(s): O11.4 - PRE-EXISTING HTN WITH PRE-ECLAMPSIA, COMP CHILDBIRTH; O10.92 - UNSP PRE-EXISTING HYPERTENSION COMPLICATING CHILDBIRTH Status: Acute Comment : Currently asymptomatic. Good diuresis. Has received 24 hour of mag sulfate. Will d/c and transfer to pp. Continue close monitoring for an additional 48 hours. Need to repeat labs in outpatient setting. (3) Chronic hypertension affecting Code(s): O10.919 - UNSP PRE-EXISTING HTN COMP , UNSP TRIMESTER Status : Acute Comment: BP has improved with Labetolol. Continue. Adjust as needed. (4) Gestational diabetes Code(s): O24.419 - GESTATIONAL DIABETES MELLITUS IN , UNSP CONTROL Status: Acute Qualifiers: Gestational diabetes mellitus control: diet-controlled Trimester: third trimester Qualified Code(s): O24.410 - Gestational diabetes mellitus in , diet controlled Comment: A1, GDM. Needs 2 hour OGTT at 6 wk pp visit. (5) Fibroid, uterine Code(s): D25.9 - LEIOMYOMA OF UTERUS, UNSPECIFIED Status: Acute Qualifiers: Uterine leiomyoma location: intramural and submucous Qualified Code(s): D25.1 - Intramural leiomyoma of uterus; D25.0 - Submucous leiomyoma of uterus; D25.0 - Submucous leiomyoma of uterus Comment: Significantly large utrine fibroid preventing attempt at vaginal delivery. Will need paint line operator follow up with [facility] for surgical planning. (6) 32 weeks gestation of Code(s): Z3A.32 - 32 WEEKS GESTATION OF Status: Acute Comment: PPD #1. No evidence of PTL. Medically indicated delivery. doing well with gemini. - Assessment/Plan Will transfer to pp floor. Will likely need continuous monitoring for another 48 hour due to superimposed preeclampsia with severe features. Need close outpatient follow up for multiple complications/issues. Tucker
[2017-02-01] MEDS ORDERED: Bisacodyl 10 MG SUPP PR PRN (21:48)
[2017-02-01] MEDS ORDERED: Lanolin Ointment 7 GM TUBE TOP PRN (21:48)
[2017-02-01] MEDS ORDERED: Ondansetron HCl/PF 4 MG/2 ML Vial IVP PRN (21:48)
[2017-02-01] MEDS ORDERED: diphenhydrAMINE HCl 25 MG CAP PO PRN (21:48)
[2017-02-01] MEDS: Simethicone Chewable 80 MG TAB PO PRN (22:21)
[2017-02-01] MEDS: HYDROcodone/Acetaminophen 5/325 mg Tablet PO PRN (22:21)
[2017-02-02] MEDS: Ferrous Sulfate 325 MG TAB PO SCH ×2 (00:31→11:21)
[2017-02-02] MEDS: HYDROcodone/Acetaminophen 5/325 mg Tablet PO PRN ×3 (03:37→15:00)
[2017-02-02 05:51] LABS: ALT (SGPT) 101 U/L (8-55); AST (SGOT) 43 U/L (5-34); Alkaline Phosphatase 138 U/L (40-150); Anion Gap 12 mmol/L (10-20); BUN (Urea Nitrogen) 12 mg/dL (7.0-18.7); Bilirubin, Total 0.8 mg/dL (0.2-1.2); Calc. Creatinine Clearance 90 mL/min (70-130); Calcium 9.3 mg/dL (7.8-10.44); Carbon Dioxide 29 mmol/L (22-29); Chloride 101 mmol/L (98-107); Estimated GFR-MDRD 65; Globulin 3.7 g/dL (2.4-3.5); Protein, Total 6.7 g/dL (6.0-8.3)
[2017-02-02] MEDS: Labetalol HCl 100 MG TAB PO SCH ×2 (08:23→21:27)
[2017-02-02] MEDS: Prenatal Vitamin 1 TAB PO SCH (08:23)
--- NOTE | 2017-02-02 08:28 | PDOC.PP ---
Post Progress Note Post Day #: 2 PO intake tolerated: yes Flatus: no Ambulation: no Vital Signs (12 hours) Temp Pulse Resp BP BP BP Pulse Ox 02/02/17 08:23 70 184/97 H 02/02/17 07:57 99.3 F 70 20 184/91 H 02/02/17 05:58 58 L 20 159/86 H 02/02/17 03:40 177/90 H 02/02/17 03:30 98.6 F 58 L 20 160/88 H 02/02/17 00:31 52 L 02/02/17 00:00 98.3 F 52 L 20 115/68 02/01/17 21:45 98.4 F 65 20 02/01/17 21:40 98.4 F 65 20 125/74 97 Weight Weight 70.76 kg - Physical Examination General: NAD Cardiovascular: no m/r/g, RRR Respiratory: clear to ausculation bilateral Deviation from normal: diffusely ttp, hypertympanic , persistent ruq tenderness , hypoactive bs Extremities: negative homans (B) Skin: no rash Neurological: no gross focal deficits Psychiatric: normal affect Result Diagrams: 02/01/17 05:18 02/02/17 05:14 Additional Labs: Post Labs Blood Type O POSITIVE 01/31/17 12:00 (1) Pre-eclampsia added to pre-existing hypertension Code(s): O11.9 - PRE-EXISTING HYPERTENSION WITH PRE-ECLAMPSIA, UNSP TRIMESTER Status: Ruled-out (2) Chronic hypertension affecting Code(s): O10.919 - UNSP PRE-EXISTING HTN COMP , UNSP TRIMESTER Status : Acute Comment: BP has improved with Labetolol. Continue. Adjust as needed. (3) Edema Code(s): R60.9 - EDEMA, UNSPECIFIED Status: Acute Qualifiers: Edema type: gestational Trimester: third trimester Qualified Code(s): O12.03 - Gestational edema, third trimester (4) Gestational diabetes Code(s): O24.419 - GESTATIONAL DIABETES MELLITUS IN , UNSP CONTROL Status: Acute Qualifiers: Gestational diabetes mellitus control: diet-controlled Trimester: third trimester Qualified Code(s): O24.410 - Gestational diabetes mellitus in , diet controlled - Assessment/Plan hypertympanic abdomen, diffuse abd tenderness, sluggish bs will order stat KUB, ruq us, clear liquid diet lfts trending down and remains BP labile continue labetolol, hydralizine prn for sys >180 diastolic >110 continue to monitor Is/Os, per nurse 450 voided this am, nathan removed last night daily cbc and cmp, trend lfts and renal function received mag 24 hrs post delivery will monitor for worsening neuro status <Woody Vazquez - Last Filed: 02/02/17 08:26> Vital Signs (12 hours) Temp Pulse Resp BP BP BP 02/02/17 09:30 65 18 113/69 02/02/17 08:23 70 184/97 H 02/02/17 08:00 99.4 F 65 18 02/02/17 07:57 99.3 F 70 20 184/91 H 02/02/17 05:58 58 L 20 159/86 H 02/02/17 03:40 177/90 H 02/02/17 03:30 98.6 F 58 L 20 160/88 H 02/02/17 00:31 52 L Weight Weight 70.76 kg Result Diagrams: 02/02/17 05:15 02/02/17 05:14 Additional Labs: Post Labs Blood Type O POSITIVE 01/31/17 12:00 <Rishi Paiz - Last Filed: 02/02/17 12:05> Attending Addendum - Attending Addendum I personally evaluated the patient and discussed the management with Dr. Vazquez. I agree with the History, Examination, Assessment and Plan documented above with any addition or exceptions noted below. Discussed with laborist. Pursuing additional imagining. Agressive BP control. May need to restart Mg. Will monitor closely. <Rishi Paiz - Last Filed: 02/02/17 12:05>
[2017-02-02 09:18] LABS: Hematocrit 35.8 % (36.0-47.0); Mean Platelet Volume 7.9 fL (7.4-10.4); Red Blood Cell (RBC) Count 4.03 mill/uL (4.20-5.40); White Blood Cell (WBC) Count 15.3 thou/uL (4.8-10.8)
--- NOTE | 2017-02-02 09:52 | ULT ---
ULTRASOUND GALLBLADDER RIGHT UPPER QUADRANT. HISTORY: Preeclampsia. Severe features. Elevated LFTs. COMPARISON: None. FINDINGS: Hepatic echotexture has increased. Gallbladder wall thickness is normal. No pericholecystic fluid. There is moderate right-sided hydronephrosis. The right kidney measures 11.3 x 6.7 x 7 cm. IMPRESSION: 1. Mildly coarsened hepatic echotexture can be seen with steatosis. 2. Moderate to severe right-sided hydronephrosis. Distal obstructing process cannot be excluded. The hydronephrosis is somewhat greater than would be expected for hydronephrosis of . POS: [facility]
--- NOTE | 2017-02-02 10:41 | RAD ---
ABDOMINAL RADIOGRAPH: Date: 02-02-17 History: Abdominal distention, hypertympanic post caesarian section. FINDINGS: Midline surgical clips overlie the pelvis. There is gaseous distention of multiple loops of small mao wel in the upper abdomen. There is a moderate amount of retained fecal material seen in the region o f the ascending colon and at the hepatic flexure. There is a paucity of bowel gas seen overlying the lower abdomen and pelvis likely related to enlarged uterus. Osseous structures appear intact. No chaudhary spicious calcifications are identified. IMPRESSION: 1. Nonspecific gaseous distention of multiple loops of small bowel in the upper abdomen which are di splaced superiorly by enlarged uterus. 2. Moderate amount of retained fecal material in the ascending colon at the hepatic flexure. 3. Post-surgical changes overlying the pelvis. POS: [facility]ON[facility]
[2017-02-02] MEDS: Docusate (Surfak) 240 MG CAP PO SCH ×2 (11:23→21:27)
[2017-02-02] MEDS ORDERED: Furosemide 20 MG/2 ML VIAL SLOW IVP PRN (11:58)
--- NOTE | 2017-02-02 12:27 | PRG ---
DATE OF SERVICE: 02/02/2017 TIME OF EVALUATION: 11:55. LOCATION: 344. CONSULTATION REQUESTED BY FAMILY MEDICINE (RESIDENT PROGRAM) REASON FOR EVALUATION: hypertension in this patient with known chronic hypertension, status post magnesium sulfate. SUBJECTIVE: In brief, I evaluated this patient with Dr. Garcia and Dr. Woody Vazquez, with the Family Medicine Program, at their request. This patient had a section for a lower uterine segment myoma on 01/31/2017. She also underwent magnesium sulfate for elevated blood pressures. Earlier this morning, her blood pressures were noted to be elevated at 159/86 at approximately 05:58 this morning with a maximum value of 184/97 at 08:23. The patient received labetalol oral medication per the Family Medicine Program. She is on 400 mg p.o. b.i.d. The last blood pressure since that elevated value was 113/69 at 09:30. On laboratory assessment while she did have initial elevated liver function test, they have been trending down with the last value being an AST of 43 and an ALT of 101, which is down from the previous values. This value was at 4 o'clock this morning. Additionally, she underwent a right upper quadrant ultrasound which showed fatty liver changes, but no evidence of subcapsular hematoma or intrahepatic bleeding. She had a KUB also performed today for nonspecific abdominal distention. I have ordered a CT scan of the abdomen to make sure there is no other intra-abdominal process. PHYSICAL: When I went to [address] [place] [address] with the resident's to evaluate the patient , she had just been taken down to the CT scanner. ASSESSMENT: This is a patient who is postoperative day #2 with labile blood pressures, currently on 400 mg labetalol b.i.d. PLAN: 1. Aggressive blood pressure support to keep blood pressures under 160/110. This may include oral nifedipine p.r.n. or Lasix if needed, although she has had spontaneous good urine output in the last 24 hours. 2. Liver function test seems to be trending down. 3. CT scan ordered for nonspecific abdominal generalized discomfort. 4. Plan discussed with the resident. I will continue to follow for blood pressure support. 5. We will not give magnesium sulfate at this time as her blood pressure seems to be better controlled on labetalol oral medication. ADDENDUM ([id number]): CT scan with no acute intraabdominal process. Suspect mild ileus, treat medically. Discussed with Dr Garcia. [facility]ITALYonas
[2017-02-02] MEDS: Sodium Chloride 0.9% 10 ML ONE (12:31)
[2017-02-02] MEDS ORDERED: Iopamidol 370 76% 100 ML VIAL ONE (13:30)
--- NOTE | 2017-02-02 14:41 | CT ---
CT ABDOMEN AND PELVIS: HISTORY: Abdominal pain status post . COMPARISON: None. FINDINGS: Lung bases have some atelectatic change. There is small-volume pneumoperitoneum. There appears to be a large mass within the pelvic cul-de-sac displacing what is felt to be the uter us laterally and to the right. This mass measures approximately 16 x 12 x 18 cm. The urinary bladder is unremarkable. There is moderate bilateral hydronephrosis. The spleen is unremarkable as well as the pancreas. IMPRESSION: Large heterogeneous adnexal mass measuring 16.5 x 12 x 18 cm displacing the uterus anterolaterally t o the right. This is concerning for neoplasm. CODE T Multiple attemtps to discuss the findings with provider were made at 12:15 p.m. POS: ALONDRA
[2017-02-02] MEDS: Simethicone Chewable 80 MG TAB PO PRN (14:59)
[2017-02-02] MEDS: NIFEdipine 10 MG CAP PO PRN ×2 (16:44→17:58)
[2017-02-02] MEDS: Metoclopramide HCl 10 MG TAB PO SCH (16:44)
--- NOTE | 2017-02-02 17:01 | PRG ---
DATE OF SERVICE: 02/02/2017 TIME OF EVALUATION: 1641 LOCATION: The patient in room 344. BLOOD PRESSURE FOLLOWUP AND REINITIATION OF MAGNESIUM SULFATE In brief, this is a patient who is now /postoperative #2, who we have been following the blood pressures this morning. She is on labetalol 400 mg p.o. b.i.d. and we have just ordered nifedipine 10 mg p.o. daily for systolic blood pressure is greater than 160. Once again, the patient has no headache or visual changes, but is complaining of right upper quadrant discomfort. There is no evidence of subcapsular hematoma or bleeding on ultrasound or CT. Due to the patient's symptoms and continued hypertension above systolics of 160, we will reinitiate magnesium sulfate and keep in Labor and Delivery for closer blood pressure monitoring. Labetalol will continue and our dose of Procardia will be given p.r.n. for emergent/urgent hypertension. MTDD
[2017-02-02] MEDS ORDERED: NIFEdipine 10 MG CAP PO SCH (17:13)
[2017-02-02] MEDS ORDERED: Magnesium Sulfate 20 GM/WATER 500 ML BAG IVPB SCH (17:13)
[2017-02-02] MEDS ORDERED: Calcium Gluconate 4.6 MEQ in Sodium Chloride 0.9% 100 ML IVPB PRN (17:13)
[2017-02-02] MEDS: Magnesium Sulfate 20 gm/500 ml 20 GM/500 ML BAG IVPB SCH (18:18)
[2017-02-02] MEDS: Acetaminophen 325 MG TAB PO PRN (18:50)
--- NOTE | 2017-02-02 20:33 | PDOC.PP ---
Post Progress Note Post Day #: 2 PO intake tolerated: yes Flatus: no Ambulation: no Vital Signs (12 hours) Temp Pulse Resp BP BP 02/02/17 20:00 98.9 F 78 16 02/02/17 17:12 72 18 193/91 H 02/02/17 16:55 99.2 F 79 18 171/82 H 02/02/17 16:00 98.1 F 73 18 02/02/17 12:23 98.1 F 73 18 166/86 H 02/02/17 12:00 98.1 F 73 18 02/02/17 09:30 65 18 113/69 Weight Weight 70.76 kg - Physical Examination General: NAD Cardiovascular: RRR Deviation from normal: murmur present Respiratory: clear to ausculation bilateral Abdominal: appropriately TTP Extremities: negative homans (B) Deviation from normal: Hyperactive reflexes Psychiatric: normal affect Result Diagrams: 02/02/17 05:15 02/02/17 05:14 Additional Labs: Post Labs Blood Type O POSITIVE 01/31/17 12:00 (1) Chronic hypertension affecting Code(s): O10.919 - UNSP PRE-EXISTING HTN COMP , UNSP TRIMESTER Status : Acute Comment: BP has improved with Labetolol. Continue. Adjust as needed. (2) Edema Code(s): R60.9 - EDEMA, UNSPECIFIED Status: Acute Qualifiers: Edema type: gestational Trimester: third trimester Qualified Code(s): O12.03 - Gestational edema, third trimester (3) Gestational diabetes Code(s): O24.419 - GESTATIONAL DIABETES MELLITUS IN , UNSP CONTROL Status: Acute Qualifiers: Gestational diabetes mellitus control: diet-controlled Trimester: third trimester Qualified Code(s): O24.410 - Gestational diabetes mellitus in , diet controlled (4) Pre-eclampsia added to pre-existing hypertension Code(s): O11.9 - PRE-EXISTING HYPERTENSION WITH PRE-ECLAMPSIA, UNSP TRIMESTER Status: Ruled-out Comment: Reflexes still hyperactive. No longer complaining of a headache No longer complaining of RUQ pain Appropriately tender to palpation. Is tolerating PO, will progress diet Will continue q4h checks. - Assessment/Plan Continue current plan. <Pravin Vásquez - Last Filed: 02/02/17 20:31> Vital Signs (12 hours) Temp Pulse Resp BP BP 02/03/17 09:23 71 146/74 H 02/03/17 08:00 98.7 F 70 16 02/03/17 07:00 63 18 147/82 H 02/03/17 04:00 98.7 F 62 16 02/03/17 00:00 98.5 F 76 16 Weight Weight 70.76 kg Result Diagrams: 02/03/17 05:08 02/03/17 05:08 Additional Labs: Post Labs Blood Type O POSITIVE 01/31/17 12:00 (1) Status post delivery Code(s): Z98.891 - HISTORY OF UTERINE SCAR FROM PREVIOUS SURGERY Status: Acute Comment: POD#1. Classical with vertical midline incision. Doing well. Transfer to pp. Pain controlled. Lochia appropriate. Bandage off in AM. H/H stable. (2) Pre-eclampsia superimposed on chronic hypertension, delivered Code(s): O11.4 - PRE-EXISTING HTN WITH PRE-ECLAMPSIA, COMP CHILDBIRTH; O10.92 - UNSP PRE-EXISTING HYPERTENSION COMPLICATING CHILDBIRTH Status: Acute Comment : Currently asymptomatic. Good diuresis. Has received 24 hour of mag sulfate. Will d/c and transfer to pp. Continue close monitoring for an additional 48 hours. Need to repeat labs in outpatient setting. (3) Chronic hypertension affecting Code(s): O10.919 - UNSP PRE-EXISTING HTN COMP , UNSP TRIMESTER Status : Acute (4) Gestational diabetes Code(s): O24.419 - GESTATIONAL DIABETES MELLITUS IN , UNSP CONTROL Status: Acute Qualifiers: Gestational diabetes mellitus control: diet-controlled Trimester: third trimester Qualified Code(s): O24.410 - Gestational diabetes mellitus in , diet controlled (5) Fibroid, uterine Code(s): D25.9 - LEIOMYOMA OF UTERUS, UNSPECIFIED Status: Acute Qualifiers: Uterine leiomyoma location: intramural and submucous Qualified Code(s): D25.1 - Intramural leiomyoma of uterus; D25.0 - Submucous leiomyoma of uterus; D25.0 - Submucous leiomyoma of uterus Comment: Significantly large utrine fibroid preventing attempt at vaginal delivery. Will need sergeant of corrections follow up with [facility] for surgical planning. (6) 32 weeks gestation of Code(s): Z3A.32 - 32 WEEKS GESTATION OF Status: Acute Comment: PPD #1. No evidence of PTL. Medically indicated delivery. doing well with gemini. <Mili Piper - Last Filed: 02/03/17 09:34> Attending Addendum - Attending Addendum I personally evaluated the patient and discussed the management with Dr. Vásquez I agree with the History, Examination, Assessment and Plan documented above with any addition or exceptions noted below. 36 yo female s/p classical c/s 2/2 malpresentation and large lower uterine fibroid at 32.1 wks due to superimposed preeclampsia with severe features (s/p FLM steriods 01/25 and 01/26). PPD/POD #2. Patient back on mag ppx due to return of symptoms with severe range BP. CCB was added to help control BP as well earlier today. Lasix x1. Laborist is following alongside. Will continue mag. After 12 hours will decided if needs to continue for an addition 12. BP well controlled at present. No concern PE findings or s/sx. Good diuresis. ABrayMD <Mili Piper - Last Filed: 02/03/17 09:34>
[2017-02-02] MEDS ORDERED: Metoclopramide HCl 10 MG TAB PO PRN (22:33)
--- NOTE | 2017-02-03 00:58 | PDOC.PP ---
Post Progress Note Post Day #: 3 PO intake tolerated: yes Flatus: no Ambulation: no Vital Signs (12 hours) Temp Pulse Resp BP BP 02/02/17 21:27 79 149/79 H 02/02/17 20:00 98.9 F 78 16 02/02/17 17:12 72 18 193/91 H 02/02/17 16:55 99.2 F 79 18 171/82 H 02/02/17 16:00 98.1 F 73 18 Weight Weight 70.76 kg - Physical Examination General: NAD Cardiovascular: RRR Deviation from normal: Murmur present Respiratory: clear to ausculation bilateral Abdominal: appropriately TTP Deviation from normal: RUQ fullness Extremities: negative homans (B) Skin: no rash Neurological: no gross focal deficits Deviation from normal: No longer hyperactive reflexes Psychiatric: A&Ox3 Result Diagrams: 02/02/17 05:15 02/02/17 05:14 Additional Labs: Post Labs Blood Type O POSITIVE 01/31/17 12:00 (1) Chronic hypertension affecting Code(s): O10.919 - UNSP PRE-EXISTING HTN COMP , UNSP TRIMESTER Status : Acute Comment: BP has improved with Labetolol. Continue. Adjust as needed. (2) Edema Code(s): R60.9 - EDEMA, UNSPECIFIED Status: Acute Qualifiers: Edema type: gestational Trimester: third trimester Qualified Code(s): O12.03 - Gestational edema, third trimester (3) Gestational diabetes Code(s): O24.419 - GESTATIONAL DIABETES MELLITUS IN , UNSP CONTROL Status: Acute Qualifiers: Gestational diabetes mellitus control: diet-controlled Trimester: third trimester Qualified Code(s): O24.410 - Gestational diabetes mellitus in , diet controlled (4) Pre-eclampsia added to pre-existing hypertension Code(s): O11.9 - PRE-EXISTING HYPERTENSION WITH PRE-ECLAMPSIA, UNSP TRIMESTER Status: Ruled-out Comment: Reflexes not currently hyperactive. No longer complaining of a headache No longer complaining of RUQ pain Appropriately tender to palpation. Is tolerating PO, will progress diet Will continue q4h checks. Will consider D/C Mg in AM <Pravin Vásquez - Last Filed: 02/03/17 04:31> Vital Signs (12 hours) Temp Pulse Resp BP BP 02/03/17 09:23 71 146/74 H 02/03/17 08:00 98.7 F 70 16 02/03/17 07:00 63 18 147/82 H 02/03/17 04:00 98.7 F 62 16 02/03/17 00:00 98.5 F 76 16 Weight Weight 70.76 kg Result Diagrams: 02/03/17 05:08 02/03/17 05:08 Additional Labs: Post Labs Blood Type O POSITIVE 01/31/17 12:00 (1) Status post delivery Code(s): Z98.891 - HISTORY OF UTERINE SCAR FROM PREVIOUS SURGERY Status: Acute Comment: POD#1. Classical with vertical midline incision. Doing well. Transfer to . Pain controlled. Lochia appropriate. Bandage off in AM. H/H stable. (2) Pre-eclampsia superimposed on chronic hypertension, delivered Code(s): O11.4 - PRE-EXISTING HTN WITH PRE-ECLAMPSIA, COMP CHILDBIRTH; O10.92 - UNSP PRE-EXISTING HYPERTENSION COMPLICATING CHILDBIRTH Status: Acute Comment : Currently asymptomatic. Good diuresis. Has received 24 hour of mag sulfate. Will d/c and transfer to pp. Continue close monitoring for an additional 48 hours. Need to repeat labs in outpatient setting. (3) Chronic hypertension affecting Code(s): O10.919 - UNSP PRE-EXISTING HTN COMP , UNSP TRIMESTER Status : Acute (4) Gestational diabetes Code(s): O24.419 - GESTATIONAL DIABETES MELLITUS IN , UNSP CONTROL Status: Acute Qualifiers: Gestational diabetes mellitus control: diet-controlled Trimester: third trimester Qualified Code(s): O24.410 - Gestational diabetes mellitus in , diet controlled (5) Fibroid, uterine Code(s): D25.9 - LEIOMYOMA OF UTERUS, UNSPECIFIED Status: Acute Qualifiers: Uterine leiomyoma location: intramural and submucous Qualified Code(s): D25.1 - Intramural leiomyoma of uterus; D25.0 - Submucous leiomyoma of uterus; D25.0 - Submucous leiomyoma of uterus Comment: Significantly large utrine fibroid preventing attempt at vaginal delivery. Will need set up person follow up with [facility] for surgical planning. (6) 32 weeks gestation of Code(s): Z3A.32 - 32 WEEKS GESTATION OF Status: Acute Comment: PPD #1. No evidence of PTL. Medically indicated delivery. doing well with gemini. <Mili Piper - Last Filed: 02/03/17 09:38> Attending Addendum - Attending Addendum I personally evaluated the patient and discussed the management with Dr. Vásquez I agree with the History, Examination, Assessment and Plan documented above with any addition or exceptions noted below. 36 yo female s/p classical c/s 2/2 malpresentation and large lower uterine fibroid at 32.1 wks due to superimposed preeclampsia with severe features (s/p FLM steriods 01/25 and 01/26). PPD/POD #3. Patient back on mag ppx due to return of symptoms with severe range BP. CCB protocol x2. Lasix x1. Laborist is following alongside. Will continue mag. After 12 hours will decided if needs to continue for an addition 12. BP well controlled at present. No concerning PE findings or s/sx. Good diuresis continues. Remains asymptomatic. ABrayMD <Mili Piper - Last Filed: 02/03/17 09:38>
[2017-02-03] MEDS: Acetaminophen 325 MG TAB PO PRN ×2 (01:42→18:18)
[2017-02-03] MEDS: Magnesium Sulfate 20 gm/500 ml 20 GM/500 ML BAG IVPB SCH (01:55)
--- NOTE | 2017-02-03 04:31 | PDOC.PP ---
Post Progress Note Post Day #: 3 PO intake tolerated: yes Flatus: no Ambulation: no Vital Signs (12 hours) Temp Pulse Resp BP BP 02/03/17 04:00 98.7 F 62 16 02/03/17 00:00 98.5 F 76 16 02/02/17 21:27 79 149/79 H 02/02/17 20:00 98.9 F 78 16 02/02/17 17:12 72 18 193/91 H 02/02/17 16:55 99.2 F 79 18 171/82 H Weight Weight 70.76 kg - Physical Examination General: NAD Cardiovascular: RRR Respiratory: clear to ausculation bilateral Abdominal: appropriately TTP Extremities: negative homans (B) Skin: no rash Neurological: no gross focal deficits Deviation from normal: No longer hyper active reflexes Psychiatric: A&Ox3 Result Diagrams: 02/02/17 05:15 02/02/17 05:14 Additional Labs: Post Labs Blood Type O POSITIVE 01/31/17 12:00 (1) Chronic hypertension affecting Code(s): O10.919 - UNSP PRE-EXISTING HTN COMP , UNSP TRIMESTER Status : Acute Comment: BP has improved with Labetolol. Continue. Adjust as needed. (2) Edema Code(s): R60.9 - EDEMA, UNSPECIFIED Status: Acute Qualifiers: Edema type: gestational Trimester: third trimester Qualified Code(s): O12.03 - Gestational edema, third trimester (3) Gestational diabetes Code(s): O24.419 - GESTATIONAL DIABETES MELLITUS IN , UNSP CONTROL Status: Acute Qualifiers: Gestational diabetes mellitus control: diet-controlled Trimester: third trimester Qualified Code(s): O24.410 - Gestational diabetes mellitus in , diet controlled (4) Pre-eclampsia added to pre-existing hypertension Code(s): O11.9 - PRE-EXISTING HYPERTENSION WITH PRE-ECLAMPSIA, UNSP TRIMESTER Status: Ruled-out Comment: Reflexes not currently hyperactive. No longer complaining of a headache No longer complaining of RUQ pain Appropriately tender to palpation. Is tolerating PO, will progress diet Will continue q4h checks. Will consider D/C Mg in AM - Assessment/Plan Continue current plan of care. <Pravin Vásquez - Last Filed: 02/03/17 04:30> Vital Signs (12 hours) Temp Pulse Resp BP BP 02/03/17 09:23 71 146/74 H 02/03/17 08:00 98.7 F 70 16 02/03/17 07:00 63 18 147/82 H 02/03/17 04:00 98.7 F 62 16 02/03/17 00:00 98.5 F 76 16 Weight Weight 70.76 kg Result Diagrams: 02/03/17 05:08 02/03/17 05:08 Additional Labs: Post Labs Blood Type O POSITIVE 01/31/17 12:00 (1) Status post delivery Code(s): Z98.891 - HISTORY OF UTERINE SCAR FROM PREVIOUS SURGERY Status: Acute Comment: POD#1. Classical with vertical midline incision. Doing well. Transfer to pp. Pain controlled. Lochia appropriate. Bandage off in AM. H/H stable. (2) Pre-eclampsia superimposed on chronic hypertension, delivered Code(s): O11.4 - PRE-EXISTING HTN WITH PRE-ECLAMPSIA, COMP CHILDBIRTH; O10.92 - UNSP PRE-EXISTING HYPERTENSION COMPLICATING CHILDBIRTH Status: Acute Comment : Currently asymptomatic. Good diuresis. Has received 24 hour of mag sulfate. Will d/c and transfer to pp. Continue close monitoring for an additional 48 hours. Need to repeat labs in outpatient setting. (3) Chronic hypertension affecting Code(s): O10.919 - UNSP PRE-EXISTING HTN COMP , UNSP TRIMESTER Status : Acute (4) Gestational diabetes Code(s): O24.419 - GESTATIONAL DIABETES MELLITUS IN , UNSP CONTROL Status: Acute Qualifiers: Gestational diabetes mellitus control: diet-controlled Trimester: third trimester Qualified Code(s): O24.410 - Gestational diabetes mellitus in , diet controlled (5) Fibroid, uterine Code(s): D25.9 - LEIOMYOMA OF UTERUS, UNSPECIFIED Status: Acute Qualifiers: Uterine leiomyoma location: intramural and submucous Qualified Code(s): D25.1 - Intramural leiomyoma of uterus; D25.0 - Submucous leiomyoma of uterus; D25.0 - Submucous leiomyoma of uterus Comment: Significantly large utrine fibroid preventing attempt at vaginal delivery. Will need fuel attendant follow up with [facility] for surgical planning. (6) 32 weeks gestation of Code(s): Z3A.32 - 32 WEEKS GESTATION OF Status: Acute Comment: PPD #1. No evidence of PTL. Medically indicated delivery. Infant doing well with gemini. <Mili Piper - Last Filed: 02/03/17 09:40> Attending Addendum - Attending Addendum I personally evaluated the patient and discussed the management with Dr. Vásquez I agree with the History, Examination, Assessment and Plan documented above with any addition or exceptions noted below. 36 yo female s/p classical c/s 2/2 malpresentation and large lower uterine fibroid at 32.1 wks due to superimposed preeclampsia with severe features (s/p FLM steriods 01/25 and 01/26). PPD/POD #3. Patient back on mag ppx due to return of symptoms with severe range BP. CCB protocol x2. Lasix x1. Laborist is following alongside. Will continue mag. After 12 hours (0700) will decided if needs to continue for an addition 12. At present would likely seem okay to stop vs continuing for the total 24 hours. BP well controlled at present. No concerning PE findings or s/sx. Good diuresis continues ( 400 to 450 ml/hr). Remains asymptomatic. Needs daily BP monitoring at home upon d/c and close outpatient follow up. ABraniaMD <Mili Piper - Last Filed: 02/03/17 09:40>
[2017-02-03 05:18] LABS: #Eosinphils 0.1 thou/uL (0.0-0.7); #Neutrophils 9.8 thou/uL (1.40-6.50); %Basophils 0.3 % (0.0-1.0); %Eosinophils 0.7 % (0.0-10.0); %Lymphocytes 15.6 % (21.0-51.0); %Monocytes 7.4 % (0.0-10.0); Hematocrit 33.6 % (36.0-47.0); Mean Platelet Volume 7.3 fL (7.4-10.4); Red Blood Cell (RBC) Count 3.81 mill/uL (4.20-5.40); White Blood Cell (WBC) Count 12.9 thou/uL (4.8-10.8)
[2017-02-03 05:23] LABS: PTT 32.3 SEC (22.9-36.1); Prothrombin Time 13.4 SEC (12.0-14.7)
[2017-02-03 05:41] LABS: ALT (SGPT) 85 U/L (8-55); AST (SGOT) 34 U/L (5-34); Alkaline Phosphatase 128 U/L (40-150); Anion Gap 14 mmol/L (10-20); BUN (Urea Nitrogen) 11 mg/dL (7.0-18.7); Bilirubin, Total 0.6 mg/dL (0.2-1.2); Calc. Creatinine Clearance 101 mL/min (70-130); Calcium 9.6 mg/dL (7.8-10.44); Carbon Dioxide 30 mmol/L (22-29); Chloride 97 mmol/L (98-107); Estimated GFR-MDRD 75; Globulin 3.6 g/dL (2.4-3.5); Protein, Total 6.5 g/dL (6.0-8.3)
[2017-02-03] MEDS ORDERED: Potassium Chloride 20 MEQ TAB PO SCH ×3 (06:00→15:45)
[2017-02-03] MEDS: Ferrous Sulfate 325 MG TAB PO SCH ×3 (06:10→21:01)
--- NOTE | 2017-02-03 09:03 | PDOC.PP ---
Post Progress Note Post Day #: 3 PO intake tolerated: yes Flatus: yes Ambulation: no Vital Signs (12 hours) Temp Pulse Resp BP BP 02/03/17 08:00 98.7 F 70 16 02/03/17 07:00 63 18 147/82 H 02/03/17 04:00 98.7 F 62 16 02/03/17 00:00 98.5 F 76 16 02/02/17 21:27 79 149/79 H Weight Weight 70.76 kg - Physical Examination General: NAD Cardiovascular: RRR Deviation from normal: SEM1-2/6 Respiratory: clear to ausculation bilateral Abdominal: + bowel sounds, no distention Deviation from normal: sluggish bowel sounds, persistent ruq ttp Extremities: negative homans (B) Deviation from normal: reflexes have returned to baseline 2+ Psychiatric: normal affect Result Diagrams: 02/03/17 05:08 02/03/17 05:08 Additional Labs: Post Labs Blood Type O POSITIVE 01/31/17 12:00 (1) Pre-eclampsia added to pre-existing hypertension Code(s): O11.9 - PRE-EXISTING HYPERTENSION WITH PRE-ECLAMPSIA, UNSP TRIMESTER Status: Ruled-out (2) Chronic hypertension affecting Code(s): O10.919 - UNSP PRE-EXISTING HTN COMP , UNSP TRIMESTER Status : Acute (3) Edema Code(s): R60.9 - EDEMA, UNSPECIFIED Status: Acute Qualifiers: Edema type: gestational Trimester: third trimester Qualified Code(s): O12.03 - Gestational edema, third trimester (4) Gestational diabetes Code(s): O24.419 - GESTATIONAL DIABETES MELLITUS IN , UNSP CONTROL Status: Acute Qualifiers: Gestational diabetes mellitus control: diet-controlled Trimester: third trimester Qualified Code(s): O24.410 - Gestational diabetes mellitus in , diet controlled - Assessment/Plan lft continue to improve, will trend reflexes have returned to normal @ 2+ and pt reports she is feeling better persistent ruq pain, improved from yesterday, rates 5/10 today hypokalemia, replace with 80 mEqs po potassium, recheck bmp this afternoon platelets normal wbc trending down bp labile but trending down, continue labetolol, consider po nifedipine w/ labetolol taper pt diuresing well with 3L of UO yesterday and over 1L today, only received 1 dose of iv lasix remains on mag, will recheck q4 hrs until mag dc'd bp q1hr <Woody Vazquez - Last Filed: 02/03/17 13:17> Vital Signs (12 hours) Temp Pulse Resp BP BP 02/03/17 12:00 98.9 F 61 16 02/03/17 09:23 71 146/74 H 02/03/17 08:00 98.7 F 70 16 02/03/17 07:00 63 18 147/82 H 02/03/17 04:00 98.7 F 62 16 Weight Weight 70.76 kg Result Diagrams: 02/03/17 05:08 02/03/17 05:08 Additional Labs: Post Labs Blood Type O POSITIVE 01/31/17 12:00 <Rishi Paiz - Last Filed: 02/03/17 14:03> Attending Addendum - Attending Addendum I personally evaluated the patient and discussed the management with Dr. Vazquez. I agree with the History, Examination, Assessment and Plan documented above with any addition or exceptions noted below. Improved, see previous cosignature. <Rishi Paiz - Last Filed: 02/03/17 14:03>
[2017-02-03] MEDS: Labetalol HCl 100 MG TAB PO SCH ×2 (09:23→21:03)
[2017-02-03] MEDS: Docusate (Surfak) 240 MG CAP PO SCH ×2 (09:25→21:02)
[2017-02-03] MEDS: Prenatal Vitamin 1 TAB PO SCH (09:26)
--- NOTE | 2017-02-03 12:10 | PDOC.EVN ---
Event Note - Event Note Event Note: Discussed with Dr. Rowe, [facility] Hospitalist regarding patient's uterine mass , and discussed that this can be followed outpatient with close followup with OB /[employer]. No further evaluation needed at this time.
--- NOTE | 2017-02-03 13:10 | PDOC.PP ---
Addendum entered and electronically signed by Woody Vazquez DO 02/03/17 13: 18: PP day3* Original Note: Post Progress Note Post Day #: 2 PO intake tolerated: yes Flatus: yes Ambulation: no Vital Signs (12 hours) Temp Pulse Resp BP BP 02/03/17 12:00 98.9 F 61 16 02/03/17 09:23 71 146/74 H 02/03/17 08:00 98.7 F 70 16 02/03/17 07:00 63 18 147/82 H 02/03/17 04:00 98.7 F 62 16 Weight Weight 70.76 kg - Physical Examination General: NAD Cardiovascular: RRR Deviation from normal: roya 1-2 Respiratory: clear to ausculation bilateral Abdominal: no distention Deviation from normal: ttp ruq Neurological: no gross focal deficits Deviation from normal: 2+ patellar reflex Psychiatric: normal affect Result Diagrams: 02/03/17 05:08 02/03/17 05:08 Additional Labs: Post Labs Blood Type O POSITIVE 01/31/17 12:00 (1) Pre-eclampsia added to pre-existing hypertension Code(s): O11.9 - PRE-EXISTING HYPERTENSION WITH PRE-ECLAMPSIA, UNSP TRIMESTER Status: Ruled-out (2) Chronic hypertension affecting Code(s): O10.919 - UNSP PRE-EXISTING HTN COMP , UNSP TRIMESTER Status : Acute (3) Edema Code(s): R60.9 - EDEMA, UNSPECIFIED Status: Acute Qualifiers: Edema type: gestational Trimester: third trimester Qualified Code(s): O12.03 - Gestational edema, third trimester (4) Gestational diabetes Code(s): O24.419 - GESTATIONAL DIABETES MELLITUS IN , UNSP CONTROL Status: Acute Qualifiers: Gestational diabetes mellitus control: diet-controlled Trimester: third trimester Qualified Code(s): O24.410 - Gestational diabetes mellitus in , diet controlled - Assessment/Plan bp remains below 160/110, dtrs normal, maintaining good urine op, mag has been dc'd. One bp 142 sys, but others remain <120s. continue current medication regimen we will transfer pt back to , will continue to monitor pt q4 hrs to assess worsening s/s preeclampsia sl, switch to po hydration, encourage ambulation bp checks q1hr denies cp, sob, rates abdominal pain /, denies headache next check 5pm afternoon bmp pending <Woody Vazquez - Last Filed: 02/03/17 12:57> Vital Signs (12 hours) Temp Pulse Resp BP BP 02/03/17 12:00 98.9 F 61 16 02/03/17 09:23 71 146/74 H 02/03/17 08:00 98.7 F 70 16 02/03/17 07:00 63 18 147/82 H 02/03/17 04:00 98.7 F 62 16 Weight Weight 70.76 kg Result Diagrams: 02/03/17 05:08 02/03/17 05:08 Additional Labs: Post Labs Blood Type O POSITIVE 01/31/17 12:00 <Rishi Paiz - Last Filed: 02/03/17 14:00> Attending Addendum - Attending Addendum I personally evaluated the patient and discussed the management with Dr. Vazquez. I agree with the History, Examination, Assessment and Plan documented above with any addition or exceptions noted below. Improved. Ok to move off mag. BP < 160/110. No clonus or hyperreflexia. Creatinine improving. Read of ct noted. Uterus in mid/RUQ and is where she has described her plan. Will discuss r/o malignancy with tennis centre manager. <Rishi Paiz - Last Filed: 02/03/17 14:00>
[2017-02-03] MEDS: Sodium Chloride 0.9% 10 ML ONE (13:18)
[2017-02-03 14:51] LABS: Anion Gap 16 mmol/L (10-20); BUN (Urea Nitrogen) 9 mg/dL (7.0-18.7); Calc. Creatinine Clearance 101 mL/min (70-130); Calcium 10.3 mg/dL (7.8-10.44); Carbon Dioxide 31 mmol/L (22-29); Chloride 94 mmol/L (98-107); Estimated GFR-MDRD 75
[2017-02-03] MEDS: Simethicone Chewable 80 MG TAB PO PRN (21:02)
[2017-02-03] MEDS: HYDROcodone/Acetaminophen 5/325 mg Tablet PO PRN (23:30)
[2017-02-04] MEDS: HYDROcodone/Acetaminophen 5/325 mg Tablet PO PRN ×3 (04:43→14:23)
[2017-02-04] MEDS: Simethicone Chewable 80 MG TAB PO PRN (04:43)
[2017-02-04 05:16] LABS: #Eosinphils 0.3 thou/uL (0.0-0.7); #Lymphocytes 2.3 thou/uL (1.20-3.40); #Monocytes 0.7 thou/uL (0.11-0.59); #Neutrophils 9.1 thou/uL (1.40-6.50); %Basophils 0.4 % (0.0-1.0); %Eosinophils 2.3 % (0.0-10.0); %Lymphocytes 18.4 % (21.0-51.0); %Monocytes 5.8 % (0.0-10.0); Mean Platelet Volume 7.3 fL (7.4-10.4); Red Blood Cell (RBC) Count 3.84 mill/uL (4.20-5.40); White Blood Cell (WBC) Count 12.5 thou/uL (4.8-10.8)
[2017-02-04 05:26] LABS: ALT (SGPT) 80 U/L (8-55); AST (SGOT) 36 U/L (5-34); Alkaline Phosphatase 132 U/L (40-150); Anion Gap 12 mmol/L (10-20); BUN (Urea Nitrogen) 14 mg/dL (7.0-18.7); Bilirubin, Total 0.8 mg/dL (0.2-1.2); Calc. Creatinine Clearance 106 mL/min (70-130); Calcium 9.6 mg/dL (7.8-10.44); Carbon Dioxide 29 mmol/L (22-29); Chloride 99 mmol/L (98-107); Estimated GFR-MDRD 79; Globulin 3.5 g/dL (2.4-3.5); Protein, Total 6.5 g/dL (6.0-8.3)
[2017-02-04] MEDS: Metoclopramide HCl 10 MG TAB PO SCH (08:02)
[2017-02-04] MEDS: Labetalol HCl 100 MG TAB PO SCH ×2 (08:03→08:58)
[2017-02-04] MEDS: Ferrous Sulfate 325 MG TAB PO SCH ×2 (08:03→08:59)
[2017-02-04] MEDS: Docusate (Surfak) 240 MG CAP PO SCH ×2 (08:03→08:58)
[2017-02-04] MEDS: Prenatal Vitamin 1 TAB PO SCH (08:58)
--- NOTE | 2017-02-04 09:13 | PDOC.PP ---
Post Progress Note Post Day #: 4 PO intake tolerated: yes Flatus: yes Ambulation: yes Vital Signs (12 hours) Temp Pulse Resp BP BP Pulse Ox 02/04/17 08:58 68 130/80 02/04/17 08:16 98.0 F 68 20 133/80 02/04/17 08:03 75 02/04/17 04:35 98.4 F 75 18 128/77 95 02/03/17 23:22 97.9 F 73 18 115/57 L 96 02/03/17 23:20 97.9 F 73 18 93 L Weight Weight 70.76 kg - Physical Examination General: NAD Cardiovascular: RRR Deviation from normal: roya 1-2/6 Respiratory: clear to ausculation bilateral Abdominal: + bowel sounds, no distention Deviation from normal: ttp in the right epigatric region, the uterine fundus is ttp in RUQ Extremities: negative homans (B) Skin: no rash Neurological: no gross focal deficits Deviation from normal: reflexes 3+ Psychiatric: normal affect Result Diagrams: 02/04/17 03:58 02/04/17 03:58 Additional Labs: Post Labs Blood Type O POSITIVE 01/31/17 12:00 (1) Pre-eclampsia added to pre-existing hypertension Code(s): O11.9 - PRE-EXISTING HYPERTENSION WITH PRE-ECLAMPSIA, UNSP TRIMESTER Status: Ruled-out (2) Chronic hypertension affecting Code(s): O10.919 - UNSP PRE-EXISTING HTN COMP , UNSP TRIMESTER Status : Acute (3) Edema Code(s): R60.9 - EDEMA, UNSPECIFIED Status: Acute Qualifiers: Edema type: gestational Trimester: third trimester Qualified Code(s): O12.03 - Gestational edema, third trimester (4) Gestational diabetes Code(s): O24.419 - GESTATIONAL DIABETES MELLITUS IN , UNSP CONTROL Status: Acute Qualifiers: Gestational diabetes mellitus control: diet-controlled Trimester: third trimester Qualified Code(s): O24.410 - Gestational diabetes mellitus in , diet controlled - Assessment/Plan -pts bp has remained stable and she continues to have good urine op -she was encouraged to begin ambulating more -she has consistent ruq pain however there is no palpable liver below the costal margin, her uterus lies approx 3cm below the costal margin and is ttp, this is likely 2/2 her large uterine fibroid which is displacing her uterus and partially compressing her ureters -she has had a bm and continues to tolerate po. She was encouraged to continue eating drinking and ambulating to prevent ileus -reports her pain a 6/10 today, but this is strictly on uterine palpation and left side of the abdomen -continue colace sena, encourage ambulation -she will need op f/u with a milling machine operator, but the pt is currently uninsured. We will attempt to establish care with a provider she can f/u with in the op setting -persistent roya 2/2 increased volume of vs early from undiagnosed chronic htn, recommend op f/u vss, consider dc to home today <Woody Vazquez - Last Filed: 02/04/17 09:11> Vital Signs (12 hours) Temp Pulse Resp BP BP Pulse Ox 02/04/17 11:39 99.2 F 80 20 127/75 02/04/17 08:58 68 130/80 02/04/17 08:50 98.0 F 68 20 02/04/17 08:16 98.0 F 68 20 133/80 02/04/17 08:03 75 02/04/17 04:35 98.4 F 75 18 128/77 95 Weight Weight 70.76 kg Result Diagrams: 02/04/17 03:58 02/04/17 03:58 Additional Labs: Post Labs Blood Type O POSITIVE 01/31/17 12:00 <Rishi Paiz - Last Filed: 02/04/17 12:45> Attending Addendum - Attending Addendum I personally evaluated the patient and discussed the management with Dr. Vazquez. I agree with the History, Examination, Assessment and Plan documented above with any addition or exceptions noted below. Doing well, no severe symptoms, BP well controlled. certified home health aide feels uterine/ cervical mass simply a fibroid and may f/u outpatient. Creatinine stable. Rx given, bp check and staple removal early next week. Strict ED warnings signs discussed and patient voiced understanding. <Rishi Paiz - Last Filed: 02/04/17 12:45>
[2017-02-04 11:39] VITALS: BP 127/75; TEMP 99.2
--- NOTE | 2017-02-04 13:04 | PDOC.EVN ---
Event Note - Event Note Event Note: Discussed case with Dr. Babin. Will d/c patient, as BP > 150 on Labetolol and not requiring PRN BP medications, LFT's downtrending, Coag's normal. DOBBS has resolved as well as ileus resolved. Patient is to follow-up within 3 days of discharge with PCP, and f/u with GENERAL CONTRACTOR within 6 weeks of discharge for further evaluation of fibroid. <Lucille Garcia - Last Filed: 02/04/17 13:03> - Event Note Event Note: Agreed. MD Olaf <Luis Armando Babin - Last Filed: 02/04/17 17:05>
== END 2017-02-04 17:30 | disposition home or self-care (01) | DRG 766 ==
LOC: L&D/OP 10:42 → L&D 11:42 → OBSVTOIN 11:42 → L&D 20:28 → 3SW 02-01 21:39 → L&D 02-02 17:52 → 3SW 02-03 14:50
PROVIDERS: ADMIT Emergency Medicine; ATTEND Family Medicine
PROC: 10D00Z0 Extraction of Products of Conception, High, Open Approach (ICD-10-PCS; principal; 2017-01-31)
PROC: 10907ZC Drainage of Amniotic Fluid, Therapeutic from Products of Conception, Via Natural or Artificial Opening (ICD-10-PCS; 2017-01-31)
DX: O11.4 Pre-existing hypertension with pre-eclampsia, complicating childbirth (principal); O24.420 Gestational diabetes mellitus in childbirth, diet controlled; D25.9 Leiomyoma of uterus, unspecified; O32.8XX0 Maternal care for other malpresentation of fetus, not applicable or unspecified; O65.5 Obstructed labor due to abnormality of maternal pelvic organs; O10.92 Unspecified pre-existing hypertension complicating childbirth; O34.13 Maternal care for benign tumor of corpus uteri, third trimester; O99.285 Endocrine, nutritional and metabolic diseases complicating the puerperium; O75.89 Other specified complications of labor and delivery; E87.6 Hypokalemia; R94.5 Abnormal results of liver function studies; Z3A.32 32 weeks gestation of pregnancy; Z37.0 Single live birth; Z23 Encounter for immunization
CPT/HCPCS: 36415; 36416; 74000; 74177; 76705; 76805; 76819; 80053; 81001; 82570; 83735; 84156; 85025; 85027; 85379; 85610; 85730; 86850; 86900; 86901; 88307; 90707; 90715; A4216; J0360; J1100; J1650; J1940; J2274; J2405; J2550; J2590; J3475; J7050

== ENCOUNTER 2024-02-08 14:10 | Outpatient (CLI) | payer OTHER | END 2024-02-08 14:11 | disposition home or self-care (01) | LOC: BICRAD 14:10 | PROVIDERS: ATTEND Family Medicine | DX: R76.12 Nonspecific reaction to cell mediated immunity measurement of gamma interferon antigen response without active tuberculosis (principal) | CPT/HCPCS: 71046 ==